=== PATIENT | female | born 1970 | race Two or more races ===

== ENCOUNTER 2016-07-06 10:44 | Emergency (ER) | payer SELFPAY ==
[2016-07-06 10:56] VITALS: PULSE 61; BMI 31.9
[2016-07-06] MEDS: morphine CARPU-JECT 2 MG/1 ML DISP.SYRIN IVPUSH ONE (11:45)
[2016-07-06] MEDS: ASPIRIN 81 MG CHEWABLE TABLETS PO ONE (11:45)
[2016-07-06] MEDS ORDERED: morphine CARPU-JECT 4 MG/1 ML DISP.SYRIN ONE (11:45)
[2016-07-06] MEDS ORDERED: ASPIRIN 81 MG CHEWABLE TABLETS ONE (11:45)
[2016-07-06 11:51] LABS: BASOPHIL 1.1 % (0-2.0); MCH 28.5 pg (25.7-33.7); MCHC 33.4 g/dl (32.0-36.0); MEAN CELL VOLUME 85.5 fl (80-96); MEAN PLT VOLUME 7.2 fl (7.5-11.1); NEUTROPHILS 48.7 % (42.8-82.8); PLATELET COUNT 343 K/MM3 (134-434); RDW 12.9 % (11.6-15.6); WHITE BLOOD COUNT 9.3 K/mm3 (4.0-10.0)
--- NOTE | 2016-07-06 12:09 | PDOC ---
History of Present Illness - General Chief Complaint: Chest Pain Stated Complaint: CHEST PAIN Time Seen by Provider: 07/06/16 11:06 History Source: Patient Exam Limitations: No Limitations - History of Present Illness Initial Comments: 07/06/16 12:10 46-year-old female medical history presents to the ED with sudden onset of left substernal sharp pain that she states began while she was attempting to lie down. Patient states was not performing anything exertional activities no she had this pain before to this extent. Patient states symptoms have now subsided substantially but still has this dull aching pain to her left chest wall , with tingling to her left upper arm. Patient denies recent travel, recent surgery, or sensory lifestyle. Patient states smokes cigarettes occasionally and denies any history of DVT. Patient denies recent illness, cough, shortness of breath, palpitations diaphoresis, or nausea. Presenting Symptoms: Chest Pain Timing/Duration: reports: changing over time Severity/Quality: reports: moderate, pressure Location: reports: substernal (left) Chest Pain Radiation: reports: arms (left normal) Activities at Onset: denies: none Prior Chest Pain/Cardiac Workup: reports: No prior chest pain Nitro Today/Relief: Yes: no nitro taken today Aspirin Received prior to arrival (Core Measure): Yes: no aspirin today, 81 mg x 2 (given in the ED) Beta Jono given by EMS (Core Measure): No Beta Jono taken at Home (Core Measure): No Beta Jono Contraindications (Core Measure): Yes: Other Beta Jono indicated at this time? (Core Measure): No Associated Symptoms: Yes: Chest Pain/pressure Past History - Past Medical History Allergies/Adverse Reactions: Allergies Allergy/AdvReac Type Severity Reaction Status Date / Time No Known Allergies Allergy Verified 07/06/16 10:52 Home Medications: Ambulatory Orders Cyclobenzaprine HCl [Flexeril -] 10 mg PO TID #21 tablet 02/23/15 Ibuprofen [Motrin -] 600 mg PO TID #21 tablet 02/23/15 - Surgical History Cholecystectomy: Yes - Immunization History Immunization Up to Date: Yes - Psycho/Social/Smoking Cessation Hx Anxiety: No Suicidal Ideation: No Smoking Status: Yes Smoking History: Current every day smoker Have you smoked in the past 12 months: Yes Number of Cigarettes Smoked Daily: 3 Information on smoking cessation initiated: No 'Breaking Loose' booklet given: 05/30/13 Hx Alcohol Use: No Drug/Substance Use Hx: No Substance Use Type: None Patient Lives Alone: No Lives with/in: spouse/SO Review of Systems - Review of Systems Able to Perform ROS?: Yes Constitutional: No: Symptoms Reported HEENTM: No: Symptoms Reported Respiratory: No: Symptoms reported Cardiac (ROS): Yes: Chest Pain ABD/GI: No: Symptoms Reported : No: Symptoms Reported Musculoskeletal: No: Muscle Pain, Muscle Weakness Integumentary: No: Symptoms Reported Neurological: Yes: Tingling (left arm) Endocrine: No: Symptoms Reported Hematologic/Lymphatic: No: Symptoms Reported *Physical Exam - Vital Signs Last Vital Signs Temp Pulse Resp BP Pulse Ox 97.5 F L 61 18 124/78 97 07/06/16 13:52 07/06/16 13:52 07/06/16 13:52 07/06/16 13:52 07/06/16 13:52 - Physical Exam General Appearance: Yes: Nourished, Appropriately Dressed. No: Apparent Distress HEENT: positive: Pharynx Normal. negative: Pale Conjunctivae Neck: positive: Normal Thyroid, Supple. negative: Tender Respiratory/Chest: positive: Chest Tender (left substernal left axillary at fifth intercostal space radiating to 7th ics), Lungs Clear (ICS), Normal Breath Sounds. negative: Respiratory Distress, Accessory Muscle Use Cardiovascular: positive: Regular Rhythm, Regular Rate. negative: Murmur Gastrointestinal/Abdominal: positive: Soft. negative: Tenderness Extremity: positive: Normal Capillary Refill. negative: Pedal Edema Integumentary: positive: Normal Color, Warm, Moist. negative: Rash Neurologic: positive: Motor Strength 5/5 (ambulatory) Heart Score/ECG Review - History History: Slightly suspicious - Electrocardiogram EKG: Normal - Age Age: 45-65 - Risk Factors Risk Factors Heart Score: Yes Smoking History Based on the list above the patient has:: 1-2 risk factors - Troponin Troponin: </= normal limit - Score Heart Score - Total: 2 - ECG Intrepretation Rhythm: Regular Rhythm (rate 620. intervals are reg. No acute findings) ED Treatment Course - LABORATORY CBC & Chemistry Diagram: 07/06/16 11:40 07/06/16 11:40 - ADDITIONAL ORDERS Additional order review: Laboratory Results 07/06/16 07/06/1617 14:23 11:40 11:40 D-Dimer < 200 Sodium 136 Potassium 4.2 Chloride 101 Carbon Dioxide 25 Anion Gap 10 BUN 14 Creatinine 0.7 Creat Clearance w eGFR > 60 Random Glucose 90 Calcium 9.2 Total Bilirubin 0.3 AST 22 ALT 30 Alkaline Phosphatase 104 Creatine Kinase 127 Troponin I < 0.02 Total Protein 7.7 Albumin 3.9 Urine Color Ltyellow Urine Appearance Clear Urine pH 5.0 Ur Specific [place] 1.014 Urine Protein Negative Urine Glucose (UA) Negative Urine Ketones Negative Urine Blood 2+ H Urine Nitrite Negative Urine Bilirubin Negative Urine Urobilinogen Negative Ur Leukocyte Esterase Negative Urine HCG, Qual Negative 07/06/16 11:40 RBC 4.87 MCV 85.5 MCHC 33.4 RDW 12.9 MPV 7.2 L Neutrophils % 48.7 Lymphocytes % 31.5 Monocytes % 6.7 Eosinophils % 12.0 H Basophils % 1.1 - RADIOLOGY Radiology Studies Ordered: Category Date Time Status CHEST X-RAY PORTABLE* [RAD] Stat Radiology 07/06/16 13:27 Ordered - Medications Given in the ED: ED Medications Discontinued Medications Generic Name Dose Route Start Last Admin Trade Name Freq PRN Reason Stop Dose Admin Aspirin 162 mg 07/06/16 11:19 07/06/16 11:45 Asa - PO 07/06/16 11:20 162 mg ONCE ONE Administration Morphine Sulfate 4 mg 07/06/16 11:19 07/06/16 11:45 Morphine Injection - IVPUSH 07/06/16 11:20 4 mg ONCE ONE Administration Oxycodone/Acetaminophen 1 combo 07/06/16 14:18 07/06/16 14:33 Percocet 5/325 - PO 07/06/16 14:19 1 combo ONCE ONE Administration Medical Decision Making - Medical Decision Making 07/06/16 12:08 Patient with sudden onset of sharp pain to the left side of her chest radiating now to her left arm. Patient denies familial cardiac history but states smokes cigarettes daily denies any history of dyslipidemia or cardiac disease. Patient on exam had reproducible chest discomfort without noted rash, chest asymmetry, or abnormal vital signs. Patient concerning for ACS versus PE versus muscle skeletal pain. Patient ordered for workup including d-dimer and morphine IV. Patient also given aspirin 162 mg 07/06/16 12:33 Laboratory Tests 07/06/16 07/06/16 07/06/16 11:40 11:40 11:40 WBC 9.3 Hgb 13.9 Hct 41.7 MPV 7.2 L Lymphocytes % 31.5 Monocytes % 6.7 Eosinophils % 12.0 H Basophils % 1.1 D-Dimer Pending Sodium 136 Potassium 4.2 Chloride 101 Carbon Dioxide 25 Anion Gap 10 BUN 14 Creatinine 0.7 Random Glucose 90 Calcium 9.2 AST 22 ALT 30 Creatine Kinase 127 Troponin I < 0.02 07/06/16 13:27 Laboratory Tests 07/06/16 11:40 D-Dimer < 200 chest x-ray ordered 07/06/16 15:01 While awaiting second troponin patient apparently requested to take her IV out. When I went to the room patient already had left and unable to be located in the ER, waiting area or ER ramp. *DC/Admit/Observation/Transfer Diagnosis at time of Disposition: Chest pain Qualifiers: Chest pain type: unspecified Qualified Code(s): R07.9 - Chest pain, unspecified - Discharge Dispostion Disposition: ELOPED Condition at time of disposition: Unchanged/Unknown
[2016-07-06 12:25] LABS: ALBUMIN 3.9 g/dl (3.4-5.0); ALK PHOS 104 U/L (45-117); ANION GAP 10 (8-16); BILIRUBIN,TOTAL 0.3 mg/dL (0.2-1.0); CALCIUM 9.2 mg/dL (8.5-10.1); CO2 25 mmol/L (21-32); CREATININE 0.7 mg/dL (0.55-1.02); GLUCOSE,RANDOM 90 mg/dL (74-106); SGOT/AST 22 U/L (15-37); SGPT/ALT 30 U/L (12-78); TOT PROT 7.7 g/dl (6.4-8.2)
[2016-07-06 12:27] LABS: TROPONIN I < 0.02 ng/ml (0.00-0.05)
[2016-07-06 13:53] VITALS: BP 124/78; TEMP 97.5
[2016-07-06] MEDS ORDERED: OXYCODONE/APAP 5/325MG COMBO TABLET ONE (14:27)
[2016-07-06] MEDS: OXYCODONE/APAP 5/325MG COMBO TABLET PO ONE (14:33)
[2016-07-06 14:43] LABS: URINE APPEARANCE CLEAR; URINE BILIRUBIN NEGATIVE (NEGATIVE); URINE COLOR LTYELLOW; URINE GLUCOSE (UA) NEGATIVE (NEGATIVE); URINE KETONE NEGATIVE (NEGATIVE); URINE LEUK ESTERASE NEGATIVE (NEGATIVE); URINE NITRITE NEGATIVE (NEGATIVE); URINE PROTEIN NEGATIVE (NEGATIVE); URINE UROBILINOGEN NEGATIVE E.U./dl (0.2-1.0)
[2016-07-06 14:44] LABS: URINE BLOOD 2+ (NEGATIVE)
[2016-07-06 15:03] LABS: URINE MUCUS RARE; URINE RBC 2 /hpf (0-3); URINE WBC 1 /hpf (3-5)
--- NOTE | 2016-07-06 23:01 | EKG ---
Test Reason : Blood Pressure : / mmHG Vent. Rate : 062 BPM Atrial Rate : 062 BPM P-R Int : 182 ms QRS Dur : 080 ms QT Int : 430 ms P-R-T Axes : 055 -03 020 degrees QTc Int : 436 ms NORMAL SINUS RHYTHM NORMAL ECG WHEN COMPARED WITH ECG OF 31-MAR-2002 11:18, NO SIGNIFICANT CHANGE WAS FOUND Confirmed by NICOLASA BHATTI MD ([id number]) on 07/06/2016 11:01:11 PM Referred By: Confirmed By:NICOLASA BHATTI MD
== END 2016-07-06 15:05 | disposition left against medical advice (07) ==
LOC: JER 10:44
PROC: 3E033NZ Introduction of Analgesics, Hypnotics, Sedatives into Peripheral Vein, Percutaneous Approach (ICD-10-PCS; principal; 2016-07-06)
DX: R07.9 Chest pain, unspecified (principal)
CPT/HCPCS: 36415; 80053; 81003; 81015; 82550; 84484; 84703; 85025; 85379; 93005; 93010; 99284-25

== ENCOUNTER 2021-02-08 01:44 | Emergency (ER) | payer OTHER ==
[2021-02-08] MEDS ORDERED: ALBUTEROL SO4 2.5/IPRATROPIUM 0.5 INH SOL 3 ML VIAL.NEB. NEB ONE ×3 (01:56→03:09)
[2021-02-08 02:01] VITALS: BP 132/72; TEMP 97.9; BMI 34.2
[2021-02-08] MEDS ORDERED: predniSONE 1 MG TABLET (FP) PO ONE (02:53)
[2021-02-08] MEDS ORDERED: predniSONE 20 MG TABLET (UD) ONE (03:09)
[2021-02-08 03:46] VITALS: PULSE 69
== END 2021-02-08 04:02 | disposition home or self-care (01) ==
LOC: JER 01:44
PROC: 3E0F7GC Introduction of Other Therapeutic Substance into Respiratory Tract, Via Natural or Artificial Opening (ICD-10-PCS; principal; 2021-02-08)
DX: J45.21 Mild intermittent asthma with (acute) exacerbation (principal)
CPT/HCPCS: 94640; 99283-25

== ENCOUNTER 2021-05-31 23:19 | Emergency (ER) | payer OTHER ==
[2021-05-31 23:27] VITALS: BP 134/65; PULSE 77; TEMP 98.3; BMI 34.2
[2021-06-01] MEDS ORDERED: IBUPROFEN 600 MG TABLET (FP) PO ONE ×2 (00:20→00:47)
[2021-06-01] MEDS ORDERED: LIDOCAINE 5% TOPICAL PATCH TP ONE (00:44)
[2021-06-01] MEDS ORDERED: LIDOCAINE 5% TOPICAL PATCH ONE (00:51)
[2021-06-01] MEDS ORDERED: LIDOCAINE PATCH REMOVAL MC SCH (22:00)
== END 2021-06-01 00:59 | disposition home or self-care (01) ==
LOC: JER 23:19
DX: H61.23 Impacted cerumen, bilateral (principal)
CPT/HCPCS: 99283-25

== ENCOUNTER 2022-01-09 06:35 | Inpatient (IN) | payer OTHER ==
[2022-01-09] MEDS ORDERED: DEXAMETHASONE SOD PHOSPHATE 10 MG/1 ML VIAL IVPUSH ONE (06:52)
[2022-01-09] MEDS ORDERED: DEXAMETHASONE SOD PHOSPHATE 10 MG/1 ML VIAL ONE ×2 (06:56→17:58)
[2022-01-09] MEDS: ALBUTEROL SO4 2.5/IPRATROPIUM 0.5 INH SOL 3 ML VIAL.NEB. NEB SCH ×10 (07:00→20:45)
[2022-01-09] MEDS ORDERED: MAGNESIUM SULF 50% (8.12 MEQ/2 ML-1 GM VIAL) IVPB ONE (07:15)
[2022-01-09 07:23] LABS: BASO % 0.5 % (0-2.0); EOS % 4.9 % (0-4.5); HEMATOCRIT 42.5 % (32.4-45.2); HEMOGLOBIN 14.3 GM/dL (10.7-15.3); MCH 28.4 pg (25.7-33.7); MCHC 33.5 g/dl (32.0-36.0); MEAN CELL VOLUME 84.8 fl (80-96); MONO % 7.3 % (3.8-10.2); NEUT % 50.3 % (42.8-82.8); PLATELET COUNT 468 10^3/uL (134-434); RBC 5.02 M/mm3 (3.60-5.2); WHITE BLOOD COUNT 14.9 K/mm3 (4.0-10.0)
[2022-01-09 07:42] LABS: CALCIUM 9.1 mg/dL (8.5-10.1)
[2022-01-09 07:43] LABS: ALBUMIN 4.1 g/dl (3.4-5.0)
[2022-01-09 07:46] LABS: CREATININE 0.6 mg/dL (0.55-1.3)
[2022-01-09 07:47] LABS: TOT PROT 7.8 g/dl (6.4-8.2)
[2022-01-09 07:48] LABS: BILIRUBIN,TOTAL 0.4 mg/dL (0.2-1)
[2022-01-09 07:50] LABS: N-TERMINAL BNP 39.2 pg/ml (5-125)
[2022-01-09] MEDS ORDERED: MAGNESIUM 1GM/D5W - 1 GM/100 ML IVPB IVPB ONE (08:54)
[2022-01-09] MEDS ORDERED: ALBUTEROL SO4 2.5/IPRATROPIUM 0.5 INH SOL 3 ML VIAL.NEB. NEB ONE ×3 (11:09→16:54)
[2022-01-09] MEDS ORDERED: ALBUTEROL SO4 0.083% IH SOL 2.5 MG/3 ML VIAL.NEB. NEB PRN (12:01)
[2022-01-09] MEDS ORDERED: methylPREDNISolone NA SUCC 40 MG/1 ML VIAL ONE ×2 (12:28→16:54)
[2022-01-09] MEDS: methylPREDNISolone NA SUCC 40 MG/1 ML VIAL IVPUSH SCH ×2 (12:36→17:00)
[2022-01-09] MEDS: ACETAMINOPHEN 325 MG TABLET (FP) PO PRN (18:59)
[2022-01-09 20:25] VITALS: BMI 34.1
[2022-01-10] MEDS: methylPREDNISolone NA SUCC 40 MG/1 ML VIAL IVPUSH SCH ×3 (01:18→18:31)
[2022-01-10] MEDS: ALBUTEROL SO4 2.5/IPRATROPIUM 0.5 INH SOL 3 ML VIAL.NEB. NEB SCH ×4 (07:40→20:48)
[2022-01-10] MEDS: ACETAMINOPHEN 325 MG TABLET (FP) PO PRN (07:55)
[2022-01-10 09:18] LABS: MCH 28.5 pg (25.7-33.7); MCHC 33.5 g/dl (32.0-36.0); MEAN CELL VOLUME 85.3 fl (80-96); MEAN PLT VOLUME 6.9 fl (7.5-11.1); PLATELET COUNT 412 10^3/uL (134-434); RBC 4.57 M/mm3 (3.60-5.2); RDW 13.3 % (11.6-15.6); WHITE BLOOD COUNT 20.6 K/mm3 (4.0-10.0)
[2022-01-10] MEDS: ENOXAPARIN NA (PORCINE) 40 MG/0.4 ML DISP.SYRIN SQ SCH (10:05)
[2022-01-10] MEDS: FAMOTIDINE 20 MG TABLET PO SCH (10:05)
[2022-01-10 10:31] LABS: ANISOCYTOSIS 2+; MACROCYTOSIS 1+; PLATELET ESTIMATE NORMAL
[2022-01-11] MEDS: methylPREDNISolone NA SUCC 40 MG/1 ML VIAL IVPUSH SCH (02:00)
[2022-01-11] MEDS: ALBUTEROL SO4 2.5/IPRATROPIUM 0.5 INH SOL 3 ML VIAL.NEB. NEB SCH ×2 (08:15→11:20)
[2022-01-11] MEDS: ACETAMINOPHEN 325 MG TABLET (FP) PO PRN (08:45)
[2022-01-11] MEDS ORDERED: predniSONE 20 MG TABLET (UD) PO SCH (10:00)
[2022-01-11] MEDS: FAMOTIDINE 20 MG TABLET PO SCH (10:07)
[2022-01-11] MEDS: ENOXAPARIN NA (PORCINE) 40 MG/0.4 ML DISP.SYRIN SQ SCH (10:08)
[2022-01-11 10:54] LABS: HEMATOCRIT 40.3 % (32.4-45.2); HEMOGLOBIN 13.1 GM/dL (10.7-15.3); MCHC 32.5 g/dl (32.0-36.0); MEAN CELL VOLUME 86.1 fl (80-96); MEAN PLT VOLUME 7.1 fl (7.5-11.1); PLATELET COUNT 443 10^3/uL (134-434); RBC 4.68 M/mm3 (3.60-5.2); RDW 13.8 % (11.6-15.6); WHITE BLOOD COUNT 22.3 K/mm3 (4.0-10.0)
[2022-01-11 10:55] VITALS: BP 121/65; PULSE 86; RESP 18; TEMP 98.1
[2022-01-11 11:20] LABS: CALCIUM 9.7 mg/dL (8.5-10.1)
[2022-01-11 11:21] LABS: ALBUMIN 3.8 g/dl (3.4-5.0); BLOOD UREA NITROGEN 14.6 mg/dL (7-18); MAGNESIUM 2.3 mg/dL (1.8-2.4)
[2022-01-11 11:24] LABS: CREATININE 0.7 mg/dL (0.55-1.3); PHOSPHOROUS 3.7 mg/dL (2.5-4.9)
[2022-01-11 11:25] LABS: TOT PROT 7.3 g/dl (6.4-8.2)
[2022-01-11 11:26] LABS: BILIRUBIN,TOTAL 0.4 mg/dL (0.2-1)
[2022-01-11 11:38] LABS: ANISOCYTOSIS 1+; MACROCYTOSIS 0
== END 2022-01-11 14:30 | disposition home or self-care (01) | DRG 141 ==
LOC: JER 06:35 → JERBED 11:10 → J5S 18:11
PROVIDERS: ADMIT Internal Medicine; ATTEND Internal Medicine
DX: J45.21 Mild intermittent asthma with (acute) exacerbation (principal); R06.02 Shortness of breath
CPT/HCPCS: 0241U-QW; 36415; 71046-TC-FY; 80053; 82550; 82553; 83735; 83880; 84100; 84484; 85025; 93005; 93010; 94640; 99285-25; J1100

== ENCOUNTER 2022-01-22 00:30 | Emergency (ER) | payer OTHER ==
[2022-01-22] MEDS ORDERED: MAGNESIUM SULF 50% (8.12 MEQ/2 ML-1 GM VIAL) IVPB ONE (00:39)
[2022-01-22] MEDS ORDERED: ALBUTEROL SO4 2.5/IPRATROPIUM 0.5 INH SOL 3 ML VIAL.NEB. NEB ONE ×2 (00:39→01:00)
[2022-01-22] MEDS ORDERED: MAGNESIUM SULFATE IN WATER 2 GM/50 ML IVPB IVPB ONE (00:59)
[2022-01-22 01:08] VITALS: BMI 34.2
[2022-01-22 01:19] LABS: BASO % 0.5 % (0-2.0); EOS % 8.9 % (0-4.5); HEMATOCRIT 37.2 % (32.4-45.2); HEMOGLOBIN 12.6 GM/dL (10.7-15.3); LYMPH % 34.2 % (8-40); MCH 28.8 pg (25.7-33.7); MCHC 33.8 g/dl (32.0-36.0); MEAN CELL VOLUME 85.2 fl (80-96); MEAN PLT VOLUME 6.4 fl (7.5-11.1); MONO % 6.9 % (3.8-10.2); NEUT % 49.5 % (42.8-82.8); PLATELET COUNT 315 10^3/uL (134-434); RBC 4.37 M/mm3 (3.60-5.2); RDW 13.5 % (11.6-15.6); WHITE BLOOD COUNT 11.1 K/mm3 (4.0-10.0)
[2022-01-22 01:49] LABS: ALBUMIN 3.5 g/dl (3.4-5.0); BLOOD UREA NITROGEN 19.9 mg/dL (7-18); CALCIUM 8.6 mg/dL (8.5-10.1)
[2022-01-22 01:50] LABS: MAGNESIUM 1.9 mg/dL (1.8-2.4)
[2022-01-22 01:52] LABS: CREATININE 0.8 mg/dL (0.55-1.3)
[2022-01-22 01:54] LABS: BILIRUBIN,TOTAL 0.3 mg/dL (0.2-1); TOT PROT 6.4 g/dl (6.4-8.2)
[2022-01-22 06:20] VITALS: BP 128/78; PULSE 78; RESP 18; TEMP 98.3
== END 2022-01-22 06:22 | disposition home or self-care (01) ==
LOC: JER 00:30
PROC: 3E0F7GC Introduction of Other Therapeutic Substance into Respiratory Tract, Via Natural or Artificial Opening (ICD-10-PCS; principal; 2022-01-22)
PROC: 3E033NZ Introduction of Analgesics, Hypnotics, Sedatives into Peripheral Vein, Percutaneous Approach (ICD-10-PCS; 2022-01-22)
DX: J45.901 Unspecified asthma with (acute) exacerbation (principal)
CPT/HCPCS: 0241U-QW; 36415; 71045-TC-FY; 80053; 83735; 85025; 93005; 93010; 99284-25

== ENCOUNTER 2022-02-14 20:44 | Inpatient (IN) | payer OTHER ==
[2022-02-14] MEDS ORDERED: ALBUTEROL SO4 2.5/IPRATROPIUM 0.5 INH SOL 3 ML VIAL.NEB. NEB ONE ×2 (21:01→22:04)
[2022-02-14] MEDS ORDERED: DEXAMETHASONE SOD PHOSPHATE 10 MG/1 ML VIAL IVPUSH ONE (21:11)
[2022-02-14] MEDS ORDERED: MAGNESIUM SULF 50% (8.12 MEQ/2 ML-1 GM VIAL) IVPB ONE (21:12)
[2022-02-14] MEDS ORDERED: MAGNESIUM SULFATE IN WATER 2 GM/50 ML IVPB IVPB ONE (21:19)
[2022-02-14] MEDS ORDERED: DEXAMETHASONE SOD PHOSPHATE 10 MG/1 ML VIAL ONE (21:19)
[2022-02-14 21:47] LABS: BASO % 0.7 % (0-2.0); HEMATOCRIT 43.3 % (32.4-45.2); HEMOGLOBIN 14.3 GM/dL (10.7-15.3); LYMPH % 29.7 % (8-40); MCH 28.1 pg (25.7-33.7); MCHC 33.1 g/dl (32.0-36.0); MEAN PLT VOLUME 7.1 fl (7.5-11.1); MONO % 8.8 % (3.8-10.2); NEUT % 55.8 % (42.8-82.8); PLATELET COUNT 475 10^3/uL (134-434); RBC 5.09 M/mm3 (3.60-5.2); RDW 13.9 % (11.6-15.6); WHITE BLOOD COUNT 11.9 K/mm3 (4.0-10.0)
[2022-02-14] MEDS ORDERED: ALBUTEROL SO4 0.083% IH SOL 2.5 MG/3 ML VIAL.NEB. NEB ONE (22:04)
[2022-02-14 22:15] LABS: CALCIUM 9.7 mg/dL (8.5-10.1)
[2022-02-14 22:16] LABS: ALBUMIN 4.1 g/dl (3.4-5.0); BLOOD UREA NITROGEN 15.4 mg/dL (7-18)
[2022-02-14 22:19] LABS: CREATININE 0.6 mg/dL (0.55-1.3)
[2022-02-14 22:21] LABS: BILIRUBIN,TOTAL 0.5 mg/dL (0.2-1)
[2022-02-14] MEDS ORDERED: REMDESIVIR 200 MG in SODIUM CHLORIDE 250 ML IVPB ONE (23:32)
[2022-02-14] MEDS ORDERED: ALBUTEROL SO4 HFA INHALER IH PRN (23:33)
[2022-02-14] MEDS ORDERED: BUDESONIDE/FORMETEROL FUMARATE 80/4.5 mcg INHALER IH ONE (23:33)
[2022-02-14] MEDS ORDERED: ACETAMINOPHEN 500 MG TABLET (FP) PO PRN (23:34)
[2022-02-15] MEDS ORDERED: ACETAMINOPHEN 325 MG TABLET (FP) ONE (04:25)
[2022-02-15] MEDS ORDERED: ALBUTEROL SO4 2.5/IPRATROPIUM 0.5 INH SOL 3 ML VIAL.NEB. NEB ONE ×3 (08:18→17:52)
[2022-02-15] MEDS ORDERED: DEXAMETHASONE 4 MG TABLET (FP) ONE (08:19)
[2022-02-15] MEDS: ALBUTEROL SO4 2.5/IPRATROPIUM 0.5 INH SOL 3 ML VIAL.NEB. NEB SCH ×3 (08:30→17:54)
[2022-02-15 08:32] LABS: BASO % 0.6 % (0-2.0); EOS % 0.1 % (0-4.5); HEMATOCRIT 40.8 % (32.4-45.2); HEMOGLOBIN 13.4 GM/dL (10.7-15.3); LYMPH % 15.1 % (8-40); MCH 27.9 pg (25.7-33.7); MCHC 32.9 g/dl (32.0-36.0); MEAN CELL VOLUME 84.9 fl (80-96); MEAN PLT VOLUME 7.3 fl (7.5-11.1); MONO % 1.6 % (3.8-10.2); NEUT % 82.6 % (42.8-82.8); PLATELET COUNT 483 10^3/uL (134-434); RBC 4.81 M/mm3 (3.60-5.2); RDW 13.9 % (11.6-15.6); WHITE BLOOD COUNT 9.7 K/mm3 (4.0-10.0)
[2022-02-15 08:50] LABS: MAGNESIUM 2.4 mg/dL (1.8-2.4)
[2022-02-15 08:52] LABS: PHOSPHOROUS 3.8 mg/dL (2.5-4.9)
[2022-02-15 08:53] LABS: TOT PROT 7.7 g/dl (6.4-8.2)
[2022-02-15 08:54] LABS: BILIRUBIN,TOTAL 0.4 mg/dL (0.2-1); CREATININE 0.6 mg/dL (0.55-1.3)
[2022-02-15] MEDS: DEXAMETHASONE 4 MG TABLET (FP) PO SCH (09:32)
[2022-02-15] MEDS ORDERED: ENOXAPARIN NA (PORCINE) 40 MG/0.4 ML DISP.SYRIN SQ ONE (12:48)
[2022-02-15] MEDS: ENOXAPARIN NA (PORCINE) 40 MG/0.4 ML DISP.SYRIN SQ SCH (12:51)
[2022-02-15] MEDS: BUDESONIDE/FORMETEROL FUMARATE 80/4.5 mcg INHALER IH SCH ×2 (12:52→23:17)
[2022-02-15] MEDS: MONTELUKAST NA 10 MG TABLET PO SCH (23:17)
[2022-02-16] MEDS: REMDESIVIR 100 MG in SODIUM CHLORIDE 250 ML IVPB SCH (02:07)
[2022-02-16] MEDS: ALBUTEROL SO4 2.5/IPRATROPIUM 0.5 INH SOL 3 ML VIAL.NEB. NEB SCH ×2 (02:08→08:26)
[2022-02-16 02:54] VITALS: RESP 20; BMI 33.5
[2022-02-16] MEDS: ENOXAPARIN NA (PORCINE) 40 MG/0.4 ML DISP.SYRIN SQ SCH (09:53)
[2022-02-16] MEDS: PANTOPRAZOLE 40 MG TABLET PO SCH (09:54)
[2022-02-16] MEDS: ROSUVASTATIN CA 20 MG TABLET PO SCH (09:54)
[2022-02-16] MEDS: DEXAMETHASONE 4 MG TABLET (FP) PO SCH (09:54)
[2022-02-16 10:07] LABS: HEMATOCRIT 38.8 % (32.4-45.2); HEMOGLOBIN 12.7 GM/dL (10.7-15.3); MCHC 32.7 g/dl (32.0-36.0); MEAN CELL VOLUME 85.7 fl (80-96); MEAN PLT VOLUME 7.2 fl (7.5-11.1); PLATELET COUNT 453 10^3/uL (134-434); RBC 4.53 M/mm3 (3.60-5.2); RDW 13.8 % (11.6-15.6); WHITE BLOOD COUNT 14.1 K/mm3 (4.0-10.0)
[2022-02-16 11:10] LABS: BLOOD UREA NITROGEN 17.9 mg/dL (7-18)
[2022-02-16 11:13] LABS: CREATININE 0.6 mg/dL (0.55-1.3)
[2022-02-16] MEDS: BUDESONIDE/FORMETEROL FUMARATE 80/4.5 mcg INHALER IH SCH ×2 (11:25→21:18)
[2022-02-16] MEDS: ALBUTEROL SO4 HFA INHALER IH SCH ×3 (11:27→21:17)
[2022-02-16] MEDS ORDERED: MELATONIN 5 MG TABLETS PO ONE (20:22)
[2022-02-16] MEDS: MONTELUKAST NA 10 MG TABLET PO SCH (21:18)
[2022-02-17] MEDS: REMDESIVIR 100 MG in SODIUM CHLORIDE 250 ML IVPB SCH (01:46)
[2022-02-17 06:25] VITALS: BP 107/64; PULSE 71; TEMP 98
[2022-02-17] MEDS ORDERED: INSULIN (LEVEMIR) 100 UNITS/ML UNITS SQ ONE (07:40)
[2022-02-17] MEDS: DEXAMETHASONE 4 MG TABLET (FP) PO SCH (09:19)
[2022-02-17] MEDS: PANTOPRAZOLE 40 MG TABLET PO SCH (09:19)
[2022-02-17] MEDS: ROSUVASTATIN CA 20 MG TABLET PO SCH (09:19)
[2022-02-17] MEDS: ENOXAPARIN NA (PORCINE) 40 MG/0.4 ML DISP.SYRIN SQ SCH (09:20)
[2022-02-17] MEDS: ALBUTEROL SO4 HFA INHALER IH SCH (09:24)
[2022-02-17] MEDS: BUDESONIDE/FORMETEROL FUMARATE 80/4.5 mcg INHALER IH SCH (09:24)
[2022-02-17 10:15] LABS: HEMATOCRIT 41.2 % (32.4-45.2); HEMOGLOBIN 13.4 GM/dL (10.7-15.3); MCH 27.9 pg (25.7-33.7); MCHC 32.6 g/dl (32.0-36.0); MEAN CELL VOLUME 85.4 fl (80-96); MEAN PLT VOLUME 7.3 fl (7.5-11.1); PLATELET COUNT 442 10^3/uL (134-434); RBC 4.82 M/mm3 (3.60-5.2); RDW 14.1 % (11.6-15.6); WHITE BLOOD COUNT 13.2 K/mm3 (4.0-10.0)
[2022-02-17 10:39] LABS: ALBUMIN 3.7 g/dl (3.4-5.0); CALCIUM 9.4 mg/dL (8.5-10.1)
[2022-02-17 10:42] LABS: CREATININE 0.7 mg/dL (0.55-1.3)
[2022-02-17 10:44] LABS: BILIRUBIN,TOTAL 0.4 mg/dL (0.2-1); TOT PROT 7.1 g/dl (6.4-8.2)
== END 2022-02-17 11:41 | disposition home or self-care (01) | DRG 137 ==
LOC: JER 20:44 → JERBED 22:56 → J8W 02-15 22:55
PROVIDERS: ADMIT Family Medicine; ATTEND Internal Medicine
PROC: XW033E5 Introduction of Remdesivir Anti-infective into Peripheral Vein, Percutaneous Approach, New Technology Group 5 (ICD-10-PCS; principal; 2022-02-15)
PROC: 3E0333Z Introduction of Anti-inflammatory into Peripheral Vein, Percutaneous Approach (ICD-10-PCS; 2022-02-15)
DX: U07.1 COVID-19 (principal); J45.31 Mild persistent asthma with (acute) exacerbation; E78.5 Hyperlipidemia, unspecified; R09.02 Hypoxemia
CPT/HCPCS: 0241U-QW; 36415; 71045-TC-FY; 80048; 80053; 83735; 84100; 85025; 85027; 86140; 93005; 93010; 99285-25; C9399; J1100

== ENCOUNTER 2022-08-31 12:48 | Observation (INO) | payer OTHER ==
[2022-08-31] MEDS ORDERED: ACETAMINOPHEN 1000 MG/100 ML BAG IVPB ONE (13:09)
[2022-08-31] MEDS ORDERED: ONDANSETRON 4 MG/2 ML VIAL IVPUSH ONE (13:09)
[2022-08-31] MEDS ORDERED: ONDANSETRON 4 MG/2 ML VIAL ONE (13:42)
[2022-08-31] MEDS ORDERED: ACETAMINOPHEN INJECTION 100 ML IVPB ONE (13:42)
[2022-08-31 13:48] LABS: BASO % 0.8 % (0-2.0); HEMATOCRIT 40.8 % (32.4-45.2); HEMOGLOBIN 14.1 GM/dL (10.7-15.3); LYMPH % 33.9 % (8-40); MCH 28.5 pg (25.7-33.7); MCHC 34.5 g/dl (32.0-36.0); MEAN CELL VOLUME 82.6 fl (80-96); MEAN PLT VOLUME 6.7 fl (7.5-11.1); MONO % 8.5 % (3.8-10.2); NEUT % 45.8 % (42.8-82.8); PLATELET COUNT 411 10^3/uL (134-434); RBC 4.94 M/mm3 (3.60-5.2); RDW 13.4 % (11.6-15.6); WHITE BLOOD COUNT 7.9 K/mm3 (4.0-10.0)
[2022-08-31 14:09] LABS: POTASSIUM 4.3 mmol/L (3.5-5.1)
[2022-08-31 14:10] LABS: CALCIUM 9.9 mg/dL (8.5-10.1)
[2022-08-31 14:11] LABS: ALBUMIN 4.4 g/dl (3.4-5.0); BLOOD UREA NITROGEN 13.7 mg/dL (7-18)
[2022-08-31 14:14] LABS: CREATININE 0.6 mg/dL (0.55-1.3)
[2022-08-31 14:16] LABS: BILIRUBIN,TOTAL 0.2 mg/dL (0.2-1); TOT PROT 7.8 g/dl (6.4-8.2)
[2022-08-31] MEDS ORDERED: NITROGLYCERIN SUBLINGUAL 1/150 0.4 MG TAB SL PRN (17:09)
[2022-08-31] MEDS ORDERED: ALBUTEROL SO4 HFA INHALER IH PRN (17:09)
[2022-08-31] MEDS ORDERED: ASPIRIN 81 MG CHEWABLE TABLETS ONE (18:16)
[2022-08-31] MEDS: ASPIRIN COATED 81 MG TABLET.EC PO SCH (18:17)
[2022-08-31] MEDS ORDERED: ACETAMINOPHEN 325 MG TABLET (FP) PO ONE (21:53)
[2022-08-31] MEDS ORDERED: ACETAMINOPHEN 325 MG TABLET (FP) ONE (21:54)
[2022-08-31 23:54] VITALS: BMI 33.5
[2022-09-01] MEDS: ACETAMINOPHEN 1000 MG/100 ML BAG IVPB PRN ×2 (03:25→21:33)
[2022-09-01 07:21] LABS: BASO % 0.4 % (0-2.0); EOS % 13.7 % (0-4.5); HEMATOCRIT 40.1 % (32.4-45.2); HEMOGLOBIN 13.4 GM/dL (10.7-15.3); LYMPH % 50.2 % (8-40); MCH 28.1 pg (25.7-33.7); MCHC 33.3 g/dl (32.0-36.0); MEAN CELL VOLUME 84.2 fl (80-96); MEAN PLT VOLUME 7.5 fl (7.5-11.1); MONO % 8.1 % (3.8-10.2); NEUT % 27.6 % (42.8-82.8); PLATELET COUNT 405 10^3/uL (134-434); RBC 4.76 M/mm3 (3.60-5.2); RDW 13.4 % (11.6-15.6); WHITE BLOOD COUNT 7.6 K/mm3 (4.0-10.0)
[2022-09-01 07:47] LABS: CALCIUM 9.3 mg/dL (8.5-10.1)
[2022-09-01 07:49] LABS: BLOOD UREA NITROGEN 16.9 mg/dL (7-18)
[2022-09-01 07:51] LABS: CREATININE 0.7 mg/dL (0.55-1.3)
[2022-09-01] MEDS: ASPIRIN COATED 81 MG TABLET.EC PO SCH ×2 (09:08→09:11)
[2022-09-01] MEDS ORDERED: ROSUVASTATIN CA 20 MG TABLET PO SCH (10:00)
[2022-09-02 03:25] VITALS: RESP 18
[2022-09-02] MEDS ORDERED: REGADENOSON 0.4 MG/5 ML PRE-FILLED SYRINGE IVPUSH ONE (09:15)
[2022-09-02] MEDS ORDERED: FENOFIBRIC ACID 135 MG CAP PO SCH (10:00)
[2022-09-02] MEDS ORDERED: ENOXAPARIN NA (PORCINE) 40 MG/0.4 ML DISP.SYRIN SQ SCH (10:00)
[2022-09-02] MEDS: ASPIRIN COATED 81 MG TABLET.EC PO SCH (11:40)
[2022-09-02 15:28] VITALS: BP 126/75; PULSE 81; TEMP 98.2
== END 2022-09-02 18:03 | disposition home or self-care (01) ==
LOC: JER 12:48 → JERBED 16:34 → J4W 23:04
PROVIDERS: ADMIT Internal Medicine; ATTEND Internal Medicine
PROC: 3E033GC Introduction of Other Therapeutic Substance into Peripheral Vein, Percutaneous Approach (ICD-10-PCS; principal; 2022-08-31)
PROC: 3E033NZ Introduction of Analgesics, Hypnotics, Sedatives into Peripheral Vein, Percutaneous Approach (ICD-10-PCS; 2022-08-31)
DX: R07.9 Chest pain, unspecified (principal); K52.9 Noninfective gastroenteritis and colitis, unspecified; J45.909 Unspecified asthma, uncomplicated; E78.5 Hyperlipidemia, unspecified; E87.1 Hypo-osmolality and hyponatremia; Z87.891 Personal history of nicotine dependence; Z82.49 Family history of ischemic heart disease and other diseases of the circulatory system
CPT/HCPCS: 36415; 71046-TC-FY; 78452-TC; 80048; 80053; 84484; 85025; 93005; 93010; 93017; 93306-TC; 96374; 96375; 96376; 99285-25; A9502; G0378

== ENCOUNTER 2022-12-23 13:35 | Inpatient (IN) | payer OTHER ==
[2022-12-23 13:53] VITALS: BMI 34.2
[2022-12-23] MEDS ORDERED: ACETAMINOPHEN 1000 MG/100 ML BAG IVPB ONE (14:33)
[2022-12-23] MEDS ORDERED: CLINDAMYCIN 600MG PREMIX IVPB 600 MG/50 ML BAG IVPB ONE ×2 (14:46→15:16)
[2022-12-23] MEDS ORDERED: ACETAMINOPHEN INJECTION 100 ML IVPB ONE (15:10)
[2022-12-23 15:19] LABS: BASO % 0.6 % (0-2.0); EOS % 1.6 % (0-4.5); HEMOGLOBIN 13.2 GM/dL (10.7-15.3); LYMPH % 12.3 % (8-40); MCH 28.5 pg (25.7-33.7); MCHC 34.7 g/dl (32.0-36.0); MEAN CELL VOLUME 82.2 fl (80-96); MEAN PLT VOLUME 6.8 fl (7.5-11.1); MONO % 6.2 % (3.8-10.2); NEUT % 79.3 % (42.8-82.8); PLATELET COUNT 420 10^3/uL (134-434); RBC 4.63 M/mm3 (3.60-5.2); RDW 13.2 % (11.6-15.6); WHITE BLOOD COUNT 17.9 K/mm3 (4.0-10.0)
[2022-12-23 15:27] LABS: INR 1.11 (0.83-1.09); PROTHROMBIN TIME (PATIENT) 12.9 SEC (9.7-13.0)
[2022-12-23 15:29] LABS: ACTIVATED PTT 30.9 SECONDS (25.2-36.5)
[2022-12-23 15:44] LABS: POTASSIUM 3.9 mmol/L (3.5-5.1)
[2022-12-23 15:46] LABS: CALCIUM 8.9 mg/dL (8.5-10.1)
[2022-12-23 15:47] LABS: ALBUMIN 3.7 g/dl (3.4-5.0); BLOOD UREA NITROGEN 13.9 mg/dL (7-18)
[2022-12-23 15:50] LABS: CREATININE 0.7 mg/dL (0.55-1.3)
[2022-12-23 15:52] LABS: BILIRUBIN,TOTAL 0.8 mg/dL (0.2-1); TOT PROT 7.4 g/dl (6.4-8.2)
[2022-12-23] MEDS ORDERED: KETOROLAC TROMETHAMINE 15 MG/ML VIAL IVPUSH ONE (18:00)
[2022-12-23] MEDS ORDERED: KETOROLAC TROMETHAMINE 15 MG/ML VIAL ONE (18:07)
[2022-12-23] MEDS ORDERED: SODIUM CHLORIDE 3,062 ML IV ONE (23:00)
[2022-12-23] MEDS ORDERED: CLINDAMYCIN HCL 150 MG CAPSULE (FP) ONE (23:27)
[2022-12-24] MEDS ORDERED: CLINDAMYCIN HCL 300 MG CAPSULE PO SCH
[2022-12-24] MEDS: CLINDAMYCIN HCL 150 MG CAPSULE (FP) PO SCH ×3 (00:19→15:46)
[2022-12-24 05:29] VITALS: RESP 18
[2022-12-24] MEDS ORDERED: ALBUTEROL SO4 HFA INHALER IH PRN (08:11)
[2022-12-24] MEDS ORDERED: ACETAMINOPHEN 325 MG TABLET (FP) PO PRN (08:25)
[2022-12-24] MEDS ORDERED: ONDANSETRON 4 MG/2 ML VIAL IVPUSH PRN (08:59)
[2022-12-24] MEDS ORDERED: FLU VACCINE (FLULAVAL) PF 60 MCG/0.5 ML SYRINGE 2023-2024 IM ONE (10:00)
[2022-12-24] MEDS: DOCUSATE SODIUM 100 MG CAPSULE (FP) PO SCH (10:19)
[2022-12-24 10:20] LABS: BASO % 0.4 % (0-2.0); EOS % 3.7 % (0-4.5); HEMATOCRIT 37.4 % (32.4-45.2); HEMOGLOBIN 12.5 GM/dL (10.7-15.3); LYMPH % 15.1 % (8-40); MCH 28.1 pg (25.7-33.7); MCHC 33.4 g/dl (32.0-36.0); MEAN CELL VOLUME 84.2 fl (80-96); NEUT % 70.8 % (42.8-82.8); PLATELET COUNT 413 10^3/uL (134-434); RBC 4.45 M/mm3 (3.60-5.2); RDW 13.2 % (11.6-15.6); WHITE BLOOD COUNT 15.5 K/mm3 (4.0-10.0)
[2022-12-24] MEDS: ENOXAPARIN NA (PORCINE) 40 MG/0.4 ML DISP.SYRIN SQ SCH ×2 (10:20→10:27)
[2022-12-24] MEDS: HYDROCORTISONE 2.5% TOPICAL CREAM 30 GM TUBE TP SCH ×2 (10:20→21:54)
[2022-12-24] MEDS: PSYLLIUM 5.85 GM PACKET PO SCH (10:20)
[2022-12-24 10:39] LABS: POTASSIUM 3.5 mmol/L (3.5-5.1)
[2022-12-24 10:46] LABS: CALCIUM 9.2 mg/dL (8.5-10.1)
[2022-12-24 10:47] LABS: ALBUMIN 3.5 g/dl (3.4-5.0); BLOOD UREA NITROGEN 12.6 mg/dL (7-18); MAGNESIUM 1.9 mg/dL (1.8-2.4)
[2022-12-24 10:49] LABS: CREATININE 0.6 mg/dL (0.55-1.3)
[2022-12-24 10:51] LABS: BILIRUBIN,TOTAL 1.1 mg/dL (0.2-1); TOT PROT 6.9 g/dl (6.4-8.2)
[2022-12-24] MEDS ORDERED: VANCOMYCIN/WATER FOR INJ (PEG) 1,000 MG/200 ML BAG IVPB ONE (13:00)
[2022-12-24] MEDS: PIPERACILLIN/TAZOB 3.375 GM 3.375 GM in DEXTROSE 5%-WATER - 50 ML IVPB SCH ×2 (14:28→17:13)
[2022-12-24] MEDS: KETOROLAC TROMETHAMINE 15 MG/ML VIAL IVPUSH PRN (18:44)
[2022-12-25] MEDS: PIPERACILLIN/TAZOB 3.375 GM 3.375 GM in DEXTROSE 5%-WATER - 50 ML IVPB SCH ×3 (01:55→17:08)
[2022-12-25] MEDS: KETOROLAC TROMETHAMINE 15 MG/ML VIAL IVPUSH PRN ×2 (04:43→15:27)
[2022-12-25] MEDS ORDERED: VANCOMYCIN/WATER FOR INJ (PEG) 1,000 MG/200 ML BAG IVPB ONE (08:11)
[2022-12-25] MEDS: DOCUSATE SODIUM 100 MG CAPSULE (FP) PO SCH (09:00)
[2022-12-25] MEDS: ENOXAPARIN NA (PORCINE) 40 MG/0.4 ML DISP.SYRIN SQ SCH ×2 (09:00→09:06)
[2022-12-25] MEDS: HYDROCORTISONE 2.5% TOPICAL CREAM 30 GM TUBE TP SCH ×2 (09:02→22:00)
[2022-12-25] MEDS: PSYLLIUM 5.85 GM PACKET PO SCH (09:10)
[2022-12-25 09:51] LABS: HEMATOCRIT 36.6 % (32.4-45.2); HEMOGLOBIN 12.7 GM/dL (10.7-15.3); MCH 28.9 pg (25.7-33.7); MCHC 34.7 g/dl (32.0-36.0); MEAN CELL VOLUME 83.4 fl (80-96); PLATELET COUNT 412 10^3/uL (134-434); RBC 4.39 M/mm3 (3.60-5.2); RDW 13.3 % (11.6-15.6); WHITE BLOOD COUNT 10.5 K/mm3 (4.0-10.0)
[2022-12-25 09:53] LABS: POTASSIUM 3.6 mmol/L (3.5-5.1)
[2022-12-25 10:00] LABS: CALCIUM 8.9 mg/dL (8.5-10.1)
[2022-12-25 10:01] LABS: ALBUMIN 3.2 g/dl (3.4-5.0); BLOOD UREA NITROGEN 12.9 mg/dL (7-18); MAGNESIUM 1.8 mg/dL (1.8-2.4)
[2022-12-25 10:03] LABS: CREATININE 0.6 mg/dL (0.55-1.3); PHOSPHOROUS 4.2 mg/dL (2.5-4.9)
[2022-12-25 10:05] LABS: TOT PROT 6.9 g/dl (6.4-8.2)
[2022-12-25 10:16] LABS: BILIRUBIN,TOTAL 0.5 mg/dL (0.2-1)
[2022-12-25] MEDS: VANCOMYCIN/WATER 1250 MG 1,250 MG/250 ML BAG IVPB SCH (21:55)
[2022-12-26] MEDS: PIPERACILLIN/TAZOB 3.375 GM 3.375 GM in DEXTROSE 5%-WATER - 50 ML IVPB SCH ×2 (02:32→10:15)
[2022-12-26] MEDS: KETOROLAC TROMETHAMINE 15 MG/ML VIAL IVPUSH PRN ×3 (04:05→17:12)
[2022-12-26] MEDS: HYDROCORTISONE 2.5% TOPICAL CREAM 30 GM TUBE TP SCH (08:34)
[2022-12-26 09:34] LABS: HEMATOCRIT 36.6 % (32.4-45.2); HEMOGLOBIN 12.5 GM/dL (10.7-15.3); MCH 28.5 pg (25.7-33.7); MCHC 34.1 g/dl (32.0-36.0); MEAN CELL VOLUME 83.5 fl (80-96); PLATELET COUNT 453 10^3/uL (134-434); RBC 4.38 M/mm3 (3.60-5.2); RDW 13.3 % (11.6-15.6); WHITE BLOOD COUNT 8.5 K/mm3 (4.0-10.0)
[2022-12-26 09:54] LABS: POTASSIUM 4.2 mmol/L (3.5-5.1)
[2022-12-26 09:59] LABS: CREATININE 0.6 mg/dL (0.55-1.3)
[2022-12-26 10:07] LABS: BLOOD UREA NITROGEN 12.8 mg/dL (7-18)
[2022-12-26] MEDS: ENOXAPARIN NA (PORCINE) 40 MG/0.4 ML DISP.SYRIN SQ SCH (10:15)
[2022-12-26] MEDS: DOCUSATE SODIUM 100 MG CAPSULE (FP) PO SCH (10:15)
[2022-12-26] MEDS: VANCOMYCIN/WATER 1250 MG 1,250 MG/250 ML BAG IVPB SCH ×2 (10:30→21:08)
[2022-12-26] MEDS: PSYLLIUM 5.85 GM PACKET PO SCH (11:34)
[2022-12-27] MEDS: KETOROLAC TROMETHAMINE 15 MG/ML VIAL IVPUSH PRN (08:06)
[2022-12-27 10:17] VITALS: PULSE 68; TEMP 98
[2022-12-27] MEDS: DOCUSATE SODIUM 100 MG CAPSULE (FP) PO SCH (10:18)
[2022-12-27] MEDS: ENOXAPARIN NA (PORCINE) 40 MG/0.4 ML DISP.SYRIN SQ SCH ×2 (10:18→10:35)
[2022-12-27] MEDS: PSYLLIUM 5.85 GM PACKET PO SCH (10:18)
[2022-12-27] MEDS: VANCOMYCIN/WATER 1250 MG 1,250 MG/250 ML BAG IVPB SCH (10:19)
[2022-12-27 10:35] VITALS: BP 131/80
== END 2022-12-27 15:29 | disposition home or self-care (01) | DRG 720 ==
LOC: JER 13:35 → JERBED 20:17 → J6S 12-24 00:34
PROVIDERS: ADMIT Internal Medicine; ATTEND Internal Medicine
PROC: 0Y913ZZ Drainage of Left Buttock, Percutaneous Approach (ICD-10-PCS; principal; 2022-12-26)
DX: A41.02 Sepsis due to Methicillin resistant Staphylococcus aureus (principal); E78.5 Hyperlipidemia, unspecified; J45.909 Unspecified asthma, uncomplicated; K92.1 Melena; Z86.16 Personal history of COVID-19; L03.317 Cellulitis of buttock; E66.9 Obesity, unspecified; Z68.34 Body mass index [BMI] 34.0-34.9, adult; K64.9 Unspecified hemorrhoids; L02.31 Cutaneous abscess of buttock
CPT/HCPCS: 36415; 72193-TC; 80048; 80053; 83605; 83735; 84100; 85025; 85027; 85610; 85730; 86850; 86900; 86901; 87040; 87070; 87186; 87205; 93005; 93010; 99285-25; G0480

== ENCOUNTER 2023-01-10 13:51 | Inpatient (IN) | payer OTHER ==
[2023-01-10] MEDS ORDERED: VANCOMYCIN 1,000 MG in DEXTROSE 5%-WATER - 250 ML IVPB ONE (15:43)
[2023-01-10] MEDS ORDERED: VANCOMYCIN 1 GRAM (PRE-DOCKED) 1,000 MG/250 ML BAG IVPB ONE (16:01)
[2023-01-10 16:33] LABS: BASO % 1.1 % (0-2.0); EOS % 8.1 % (0-4.5); HEMATOCRIT 39.8 % (32.4-45.2); HEMOGLOBIN 13.4 GM/dL (10.7-15.3); LYMPH % 29.9 % (8-40); MCH 27.9 pg (25.7-33.7); MCHC 33.6 g/dl (32.0-36.0); MONO % 6.9 % (3.8-10.2); PLATELET COUNT 514 10^3/uL (134-434); RBC 4.79 M/mm3 (3.60-5.2); RDW 13.8 % (11.6-15.6); WHITE BLOOD COUNT 12.8 K/mm3 (4.0-10.0)
[2023-01-10] MEDS ORDERED: ACETAMINOPHEN 1000 MG/100 ML BAG IVPB PRN (16:38)
[2023-01-10] MEDS ORDERED: ALBUTEROL SO4 HFA INHALER IH PRN (16:38)
[2023-01-10] MEDS ORDERED: SODIUM CHLORIDE 1,000 ML IV SCH (16:45)
[2023-01-10 16:46] LABS: INR 0.99 (0.83-1.09); PROTHROMBIN TIME (PATIENT) 11.5 SEC (9.7-13.0)
[2023-01-10 16:47] LABS: POTASSIUM 4.2 mmol/L (3.5-5.1)
[2023-01-10 16:50] LABS: ALBUMIN 3.9 g/dl (3.4-5.0); BLOOD UREA NITROGEN 23.4 mg/dL (7-18); CALCIUM 9.1 mg/dL (8.5-10.1)
[2023-01-10 16:53] LABS: CREATININE 0.8 mg/dL (0.55-1.3)
[2023-01-10 16:55] LABS: BILIRUBIN,TOTAL 0.8 mg/dL (0.2-1); TOT PROT 7.6 g/dl (6.4-8.2)
[2023-01-10] MEDS ORDERED: CEFTRIAXONE 1 GM in DEXTROSE 5%-WATER - 50 ML IVPB ONE (17:37)
[2023-01-10 17:38] LABS: EPI CELLS 22 /uL (0-25.1); HYALINE CASTS 0 /uL (0-3.1); PH,URINE 5.5 (5.0-8.0); URINE APPEARANCE CLEAR; URINE BACTERIA 2 /uL (0-1359); URINE BILIRUBIN NEGATIVE (NEGATIVE); URINE COLOR YELLOW; URINE GLUCOSE (UA) NEGATIVE (NEGATIVE); URINE KETONE TRACE (NEGATIVE); URINE LEUK ESTERASE NEGATIVE (NEGATIVE); URINE NITRITE NEGATIVE (NEGATIVE); URINE PROTEIN NEGATIVE (NEGATIVE); URINE RBC 21 /uL (0-23.9); URINE UROBILINOGEN 0.2 mg/dL (0.2-1.0); URINE WBC 5 /uL (0-25.8)
[2023-01-10 17:49] LABS: ACTIVATED PTT 30.4 SECONDS (25.2-36.5)
[2023-01-10] MEDS ORDERED: PIPERACILLIN/TAZOB 3.375 GM 3.375 GM in DEXTROSE 5%-WATER - 50 ML IVPB SCH (18:00)
[2023-01-10 19:04] LABS: URINE CRYSTALS FEW /hpf
[2023-01-10] MEDS ORDERED: ACETAMINOPHEN INJECTION 100 ML IVPB ONE (19:08)
[2023-01-10] MEDS ORDERED: CLINDAMYCIN 600MG PREMIX IVPB 600 MG/50 ML BAG IVPB ONE (20:11)
[2023-01-10] MEDS ORDERED: CEFTRIAXONE 1 GM/50 ML BAG ONE (20:11)
[2023-01-10] MEDS: CLINDAMYCIN 600MG PREMIX IVPB 600 MG/50 ML BAG IVPB SCH (21:05)
[2023-01-10] MEDS ORDERED: DOXYCYCLINE INJECTION 100 MG in DEXTROSE 5%-WATER 100 ML IVPB SCH (22:00)
[2023-01-11] MEDS: ACETAMINOPHEN 1000 MG/100 ML BAG IVPB PRN ×2 (01:55→07:54)
[2023-01-11] MEDS ORDERED: CLINDAMYCIN 600MG PREMIX IVPB 600 MG/50 ML BAG IVPB ONE ×2 (02:08→10:07)
[2023-01-11] MEDS: CLINDAMYCIN 600MG PREMIX IVPB 600 MG/50 ML BAG IVPB SCH ×3 (02:16→17:44)
[2023-01-11 07:10] LABS: BASO % 0.6 % (0-2.0); EOS % 10.6 % (0-4.5); HEMATOCRIT 34.9 % (32.4-45.2); HEMOGLOBIN 11.6 GM/dL (10.7-15.3); LYMPH % 34.4 % (8-40); MCH 28.4 pg (25.7-33.7); MCHC 33.2 g/dl (32.0-36.0); MEAN CELL VOLUME 85.7 fl (80-96); MEAN PLT VOLUME 6.9 fl (7.5-11.1); NEUT % 43.4 % (42.8-82.8); PLATELET COUNT 429 10^3/uL (134-434); RBC 4.07 M/mm3 (3.60-5.2); RDW 13.2 % (11.6-15.6); WHITE BLOOD COUNT 9.6 K/mm3 (4.0-10.0)
[2023-01-11 07:23] LABS: POTASSIUM 4.1 mmol/L (3.5-5.1)
[2023-01-11 07:31] LABS: ALBUMIN 3.2 g/dl (3.4-5.0)
[2023-01-11 07:32] LABS: BLOOD UREA NITROGEN 17.6 mg/dL (7-18)
[2023-01-11 07:33] LABS: CALCIUM 8.5 mg/dL (8.5-10.1); MAGNESIUM 1.9 mg/dL (1.8-2.4)
[2023-01-11 07:35] LABS: CREATININE 0.7 mg/dL (0.55-1.3); PHOSPHOROUS 4.9 mg/dL (2.5-4.9)
[2023-01-11 07:36] LABS: BILIRUBIN,TOTAL 0.3 mg/dL (0.2-1); TOT PROT 6.2 g/dl (6.4-8.2)
[2023-01-11] MEDS ORDERED: ACETAMINOPHEN INJECTION 100 ML IVPB ONE (07:49)
[2023-01-11] MEDS ORDERED: FLUTICASONE/UMECLIDIN/VILANTER(100-62.5-25 TRELEGY ELLIPTA) INAHLER IH SCH (10:00)
[2023-01-11] MEDS ORDERED: BUPIVACAINE HCL/PF 0.5% (5MG/ML) 10 ML VIAL ONE (11:59)
[2023-01-11] MEDS ORDERED: LIDOCAINE HCL 1%, 10 MG/ML (20ML VIAL) ONE (11:59)
[2023-01-11] MEDS ORDERED: BUPIVACAINE HCL/PF 0.25% (2.5MG/ML) 10 ML VIAL ONE (11:59)
[2023-01-11] MEDS ORDERED: MIDAZOLAM HCL 2 MG/2 ML SINGLE DOSE VIAL ONE (12:27)
[2023-01-11] MEDS ORDERED: FENTANYL CITRATE/PF 50 MCG/ML VIAL ONE ×2 (12:27→13:11)
[2023-01-11] MEDS ORDERED: PROPOFOL 20 ML ONE ×2 (12:27→12:44)
[2023-01-11] MEDS ORDERED: ONDANSETRON 4 MG/2 ML VIAL ONE ×2 (12:28→13:44)
[2023-01-11] MEDS ORDERED: LIDOCAINE HCL/PF 2% SDV 5ML VIAL ONE (12:28)
[2023-01-11] MEDS ORDERED: KETOROLAC TROMETHAMINE 30 MG/1 ML VIAL ONE ×2 (12:28→14:49)
[2023-01-11] MEDS ORDERED: ALBUTEROL SO4 HFA INHALER IH ONE (12:38)
[2023-01-11] MEDS ORDERED: ONDANSETRON 4 MG/2 ML VIAL IVPUSH PRN ×2 (13:37→14:11)
[2023-01-11] MEDS ORDERED: PROMETHAZINE HCL 25 MG/1 ML VIAL IVPB PRN ×2 (13:37→14:11)
[2023-01-11] MEDS ORDERED: oxyCODONE HCL 5 MG TABLET PO PRN ×3 (13:37→14:11)
[2023-01-11] MEDS ORDERED: LACTATED RINGERS SOLUTION 1,000 ML IV SCH ×2 (13:45→14:11)
[2023-01-11] MEDS ORDERED: ACETAMINOPHEN 1000 MG/100 ML BAG IVPB PRN (14:11)
[2023-01-11] MEDS ORDERED: ALBUTEROL SO4 HFA INHALER IH PRN (14:11)
[2023-01-11] MEDS ORDERED: DOCUSATE SODIUM 100 MG CAPSULE (FP) PO PRN (14:17)
[2023-01-11 16:46] VITALS: BMI 37.3
[2023-01-11 16:49] VITALS: RESP 18
[2023-01-11] MEDS: oxyCODONE HCL 5 MG TABLET PO PRN (19:07)
[2023-01-11] MEDS: PIPERACILLIN/TAZOB 3.375 GM 3.375 GM in DEXTROSE 5%-WATER - 50 ML IVPB SCH ×2 (19:52→19:53)
[2023-01-12] MEDS: oxyCODONE HCL 5 MG TABLET PO PRN ×2 (00:03→06:37)
[2023-01-12] MEDS: CLINDAMYCIN 600MG PREMIX IVPB 600 MG/50 ML BAG IVPB SCH ×3 (02:20→18:42)
[2023-01-12] MEDS: PIPERACILLIN/TAZOB 3.375 GM 3.375 GM in DEXTROSE 5%-WATER - 50 ML IVPB SCH (10:08)
[2023-01-12] MEDS ORDERED: IBUPROFEN 600 MG TABLET (FP) PO PRN (10:59)
[2023-01-12] MEDS ORDERED: ACETAMINOPHEN 500 MG TABLET (FP) PO PRN ×2 (10:59→13:46)
[2023-01-12] MEDS ORDERED: traMADol HCL 50 MG TABLET PO PRN (10:59)
[2023-01-12] MEDS ORDERED: POLYETHYLENE GLYCOL (HEALTHYLAX) 3350 17 GM PACKET PO ONE (11:15)
[2023-01-12] MEDS: FLUTICASONE/UMECLIDIN/VILANTER(100-62.5-25 TRELEGY ELLIPTA) INAHLER IH SCH (11:32)
[2023-01-12] MEDS: traMADol HCL 50 MG TABLET PO PRN (16:20)
[2023-01-13] MEDS: traMADol HCL 50 MG TABLET PO PRN (01:25)
[2023-01-13] MEDS: CLINDAMYCIN 600MG PREMIX IVPB 600 MG/50 ML BAG IVPB SCH ×3 (01:30→18:55)
[2023-01-13] MEDS: IBUPROFEN 600 MG TABLET (FP) PO PRN ×3 (07:09→18:48)
[2023-01-13] MEDS: ENOXAPARIN NA (PORCINE) 40 MG/0.4 ML DISP.SYRIN SQ SCH ×2 (09:23→09:26)
[2023-01-13] MEDS: FLUTICASONE/UMECLIDIN/VILANTER(100-62.5-25 TRELEGY ELLIPTA) INAHLER IH SCH (09:23)
[2023-01-13 23:55] VITALS: PULSE 72
[2023-01-14] MEDS: CLINDAMYCIN 600MG PREMIX IVPB 600 MG/50 ML BAG IVPB SCH ×2 (01:39→10:00)
[2023-01-14] MEDS: IBUPROFEN 600 MG TABLET (FP) PO PRN ×2 (02:43→09:59)
[2023-01-14 06:53] VITALS: BP 112/64; TEMP 97.7
[2023-01-14] MEDS: FLUTICASONE/UMECLIDIN/VILANTER(100-62.5-25 TRELEGY ELLIPTA) INAHLER IH SCH (10:01)
[2023-01-14] MEDS: ENOXAPARIN NA (PORCINE) 40 MG/0.4 ML DISP.SYRIN SQ SCH (10:01)
== END 2023-01-14 14:20 | disposition home health service (06) | DRG 383 ==
LOC: JERFT 13:51 → JERBED 16:00 → J8W 01-11 15:31
PROVIDERS: ADMIT Internal Medicine; ATTEND Nurse Practitioner Family
PROC: 0Y910ZZ Drainage of Left Buttock, Open Approach (ICD-10-PCS; principal; 2023-01-11 13:30)
DX: L02.31 Cutaneous abscess of buttock (principal); L03.317 Cellulitis of buttock; E66.9 Obesity, unspecified; Z68.33 Body mass index [BMI] 33.0-33.9, adult
CPT/HCPCS: 0241U-QW; 36415; 76882-TC-RT-FY; 80053; 81003; 83036; 83605; 83735; 84100; 85025; 85610; 85730; 86850; 86900; 86901; 87040; 87070; 87086; 87186; 87205; 93005; 93010; 94760; 99285-25

== ENCOUNTER 2023-01-21 22:54 | Observation (INO) | payer OTHER ==
[2023-01-21] MEDS ORDERED: methylPREDNISolone NA SUCC 125 MG/2 ML VIAL IVPUSH ONE (23:12)
[2023-01-21] MEDS ORDERED: methylPREDNISolone NA SUCC 125 MG/2 ML VIAL ONE (23:19)
[2023-01-21 23:47] LABS: BASO % 0.8 % (0-2.0); EOS % 14.3 % (0-4.5); HEMATOCRIT 38.9 % (32.4-45.2); HEMOGLOBIN 13.2 GM/dL (10.7-15.3); LYMPH % 32.2 % (8-40); MCH 28.1 pg (25.7-33.7); MCHC 33.9 g/dl (32.0-36.0); MEAN CELL VOLUME 82.8 fl (80-96); MEAN PLT VOLUME 6.5 fl (7.5-11.1); MONO % 7.7 % (3.8-10.2); PLATELET COUNT 453 10^3/uL (134-434); RDW 13.7 % (11.6-15.6); WHITE BLOOD COUNT 10.4 K/mm3 (4.0-10.0)
[2023-01-21] MEDS: ALBUTEROL SO4 2.5/IPRATROPIUM 0.5 INH SOL 3 ML VIAL.NEB. NEB SCH (23:48)
[2023-01-21] MEDS ORDERED: MAGNESIUM SULF 50% (8.12 MEQ/2 ML-1 GM VIAL) IVPB ONE (23:52)
[2023-01-21] MEDS ORDERED: MAGNESIUM SULFATE IN WATER 2 GM/50 ML IVPB IVPB ONE (23:53)
[2023-01-22] MEDS: ALBUTEROL SO4 2.5/IPRATROPIUM 0.5 INH SOL 3 ML VIAL.NEB. NEB SCH (00:05)
[2023-01-22 00:09] LABS: POTASSIUM 3.7 mmol/L (3.5-5.1)
[2023-01-22 00:11] LABS: CALCIUM 8.9 mg/dL (8.5-10.1)
[2023-01-22 00:12] LABS: BLOOD UREA NITROGEN 16.7 mg/dL (7-18)
[2023-01-22 00:15] LABS: BILIRUBIN,TOTAL 0.3 mg/dL (0.2-1); CREATININE 0.7 mg/dL (0.55-1.3); TOT PROT 7.5 g/dl (6.4-8.2)
[2023-01-22 01:00] LABS: ALBUMIN 3.9 g/dl (3.4-5.0)
[2023-01-22] MEDS ORDERED: SULFAMETHOXAZOLE/TRIMETHOPRIM 400MG/80MG S.S. TABLET PO SCH (04:00)
[2023-01-22 06:29] LABS: BASO % 0.5 % (0-2.0); EOS % 0.9 % (0-4.5); HEMATOCRIT 38.4 % (32.4-45.2); HEMOGLOBIN 12.3 GM/dL (10.7-15.3); LYMPH % 13.7 % (8-40); MCH 27.4 pg (25.7-33.7); MEAN CELL VOLUME 85.7 fl (80-96); MEAN PLT VOLUME 6.9 fl (7.5-11.1); NEUT % 83.9 % (42.8-82.8); PLATELET COUNT 478 10^3/uL (134-434); RBC 4.48 M/mm3 (3.60-5.2); RDW 13.5 % (11.6-15.6); WHITE BLOOD COUNT 9.6 K/mm3 (4.0-10.0)
[2023-01-22 06:49] LABS: POTASSIUM 4.4 mmol/L (3.5-5.1)
[2023-01-22 06:52] LABS: ALBUMIN 3.8 g/dl (3.4-5.0); BLOOD UREA NITROGEN 15.8 mg/dL (7-18); CALCIUM 9.5 mg/dL (8.5-10.1); MAGNESIUM 2.2 mg/dL (1.8-2.4)
[2023-01-22 06:55] LABS: CREATININE 0.8 mg/dL (0.55-1.3); PHOSPHOROUS 2.6 mg/dL (2.5-4.9)
[2023-01-22 06:57] LABS: BILIRUBIN,TOTAL 0.3 mg/dL (0.2-1); TOT PROT 7.3 g/dl (6.4-8.2)
[2023-01-22] MEDS ORDERED: ALBUTEROL SO4 2.5/IPRATROPIUM 0.5 INH SOL 3 ML VIAL.NEB. NEB SCH (08:00)
[2023-01-22] MEDS ORDERED: ALBUTEROL SO4 2.5/IPRATROPIUM 0.5 INH SOL 3 ML VIAL.NEB. NEB ONE (08:42)
[2023-01-22] MEDS: ENOXAPARIN NA (PORCINE) 40 MG/0.4 ML DISP.SYRIN SQ SCH (09:34)
[2023-01-22] MEDS: SULFAMETHOXAZOLE/TRIMETHOPRIM 400MG/80MG S.S. TABLET PO SCH ×2 (09:41→21:56)
[2023-01-22] MEDS ORDERED: methylPREDNISolone NA SUCC 40 MG/1 ML VIAL IVPUSH SCH (10:00)
[2023-01-22] MEDS: BUDESONIDE/FORMETEROL FUMARATE 160/4.5 mcg INHALER IH SCH ×2 (10:21→21:57)
[2023-01-22] MEDS ORDERED: SODIUM CHLORIDE 1,000 ML IV SCH (14:45)
[2023-01-22 16:10] VITALS: RESP 18
[2023-01-22] MEDS ORDERED: ACETAMINOPHEN 325 MG TABLET (FP) PO PRN (17:38)
[2023-01-22 18:28] VITALS: BMI 33.7
[2023-01-22] MEDS ORDERED: MONTELUKAST NA 10 MG TABLET PO SCH (22:00)
[2023-01-23] MEDS: ALBUTEROL SO4 2.5/IPRATROPIUM 0.5 INH SOL 3 ML VIAL.NEB. NEB SCH ×2 (07:58→11:16)
[2023-01-23] MEDS ORDERED: predniSONE 20 MG TABLET (UD) PO SCH (10:00)
[2023-01-23] MEDS: SULFAMETHOXAZOLE/TRIMETHOPRIM 400MG/80MG S.S. TABLET PO SCH (10:11)
[2023-01-23] MEDS: ENOXAPARIN NA (PORCINE) 40 MG/0.4 ML DISP.SYRIN SQ SCH (10:12)
[2023-01-23] MEDS: BUDESONIDE/FORMETEROL FUMARATE 160/4.5 mcg INHALER IH SCH (10:13)
[2023-01-23 11:18] VITALS: PULSE 88
[2023-01-23 12:59] VITALS: BP 107/63; TEMP 97.2
== END 2023-01-23 13:15 | disposition home or self-care (01) ==
LOC: JER 22:54 → JERBED 01-22 02:12 → OBSVTOIN 01-22 03:54 → INTOOBSV 01-22 03:54 → J5S 01-22 16:37
PROVIDERS: ADMIT Internal Medicine; ATTEND Internal Medicine
PROC: 3E0F7GC Introduction of Other Therapeutic Substance into Respiratory Tract, Via Natural or Artificial Opening (ICD-10-PCS; principal; 2023-01-22)
PROC: 3E033GC Introduction of Other Therapeutic Substance into Peripheral Vein, Percutaneous Approach (ICD-10-PCS; 2023-01-22)
PROC: 3E0337Z Introduction of Electrolytic and Water Balance Substance into Peripheral Vein, Percutaneous Approach (ICD-10-PCS; 2023-01-22)
DX: E78.00 Pure hypercholesterolemia, unspecified (principal); J45.998 Other asthma; Z87.891 Personal history of nicotine dependence; K64.9 Unspecified hemorrhoids; Z88.8 Allergy status to other drugs, medicaments and biological substances; Z86.14 Personal history of Methicillin resistant Staphylococcus aureus infection; Z90.49 Acquired absence of other specified parts of digestive tract; Z29.89 Encounter for other specified prophylactic measures
CPT/HCPCS: 0241U-QW; 36415; 71045-TC-FY; 80053; 83735; 84100; 84484; 85025; 93005; 93010; 94640; 94761; 96374; 96375; 96376; 99285-25; G0378

== ENCOUNTER 2023-02-22 21:45 | Emergency (ER) | payer OTHER ==
[2023-02-22 22:12] VITALS: BP 115/68; PULSE 83; RESP 18; TEMP 98.2; BMI 34.2
[2023-02-23] MEDS ORDERED: ACETAMINOPHEN 325 MG TABLET (FP) ONE (00:17)
[2023-02-23] MEDS ORDERED: ACETAMINOPHEN 500 MG TABLET (FP) PO ONE (00:21)
== END 2023-02-23 00:58 | disposition home or self-care (01) ==
LOC: JER 21:45
DX: L02.221 Furuncle of abdominal wall (principal)
CPT/HCPCS: 99283-25